=== PATIENT | male | born 1980 | race African-American/Black ===

== ENCOUNTER 2021-01-18 07:15 | Emergency (ER) | payer MEDICAID, OTHER ==
[~2021-01-18] VITALS: Ht 175.3 cm; Wt 97.0 kg
[2021-01-18 07:27] VITALS: BP 130/81
[2021-01-18] MEDS ORDERED: ACETAMINOPHEN 325MG TABLET PO ONE (08:00)
[2021-01-18] MEDS ORDERED: IBUP-2029 MT (08:54)
== END 2021-01-18 10:24 | disposition home or self-care (01) ==
LOC: ER 07:15
DX: S82.492A Other fracture of shaft of left fibula, initial encounter for closed fracture (principal); W10.9XXA Fall (on) (from) unspecified stairs and steps, initial encounter; Y93.01 Activity, walking, marching and hiking; Y92.9 Unspecified place or not applicable
CPT/HCPCS: 29515; 73610; 93971; 99284

== ENCOUNTER 2021-09-19 18:11 | Emergency (ER) | payer MEDICAID, OTHER ==
[~2021-09-19] VITALS: Ht 177.8 cm; Wt 95.0 kg
[~2021-09-19 18:11] MED LIST: IBUP-2029 MT
[2021-09-19 22:41] LABS: CLARITY URINE CLEAR (CLEAR); COLOR URINE YELLOW (YELLOW); KETONES URINE NEGATIVE (NEGATIVE); LEUKOCYTE ESTERASE URINE 1+ (NEGATIVE); NITRITE URINE NEGATIVE (NEGATIVE); OCCULT BLOOD URINE 1+ (NEGATIVE); PH URINE 6.5 (4.5-8.0); PROTEIN URINE NEGATIVE (NEGATIVE); SPECIFIC GRAVITY URINE 1.006 (1.005-1.030)
[2021-09-19] MEDS ORDERED: CEPH500T MT (23:00)
[2021-09-19] MEDS ORDERED: CEPHALEXIN 250MG CAPSULE PO NR (23:00)
[2021-09-19 23:46] VITALS: BP 132/70
== END 2021-09-19 23:44 | disposition home or self-care (01) ==
LOC: ER 18:11
DX: R30.0 Dysuria (principal); N39.0 Urinary tract infection, site not specified; Z98.890 Other specified postprocedural states
CPT/HCPCS: 81003; 99283

== ENCOUNTER 2022-02-17 21:00 | Emergency (ER) | payer OTHER ==
[~2022-02-17] VITALS: Ht 177.8 cm; Wt 97.0 kg
[~2022-02-17 21:00] MED LIST changes: +CEPH500T MT
[2022-02-17] MEDS ORDERED: HYDROCODONE/ACETAMINOPHEN 5/325MG TABLET PO ONE (22:45)
[2022-02-17] MEDS ORDERED: IBUP-2029 MT (23:34)
[2022-02-17] MEDS ORDERED: HYDR-4001 MT (23:34)
[2022-02-17 23:59] VITALS: BP 120/74
== END 2022-02-17 23:59 | disposition home or self-care (01) ==
LOC: ER 21:00
DX: S82.891A Other fracture of right lower leg, initial encounter for closed fracture (principal); X50.1XXA Overexertion from prolonged static or awkward postures, initial encounter; Y93.89 Activity, other specified; Y92.89 Other specified places as the place of occurrence of the external cause; Y99.8 Other external cause status; Z79.899 Other long term (current) drug therapy
CPT/HCPCS: 29515; 73610; 73630; 99284